=== PATIENT | male | born 1970 | race Caucasian/White ===

== ENCOUNTER 2025-02-06 19:53 | Emergency (ER) | payer SELFPAY ==
[2025-02-06 19:53] VITALS: BMI 33.4
[2025-02-06 20:02] VITALS: BP 108/73
[2025-02-06 20:25] LABS: Hematocrit 40.6 % (39.0-52.0); Hemoglobin 14.7 g/dL (13.0-18.0); Mean Corp Hgb Conc. 36.2 g/dL (33.0-37.0); Mean Corpuscular Volume 86.9 fL (80.0-94.0); Nucleated Red Blood Cells % 0 % (-); Platelet Count 199 10^3/uL (130-400); Red Cell Dist. Width 11.4 % (11.5-14.5)
[2025-02-06 20:42] LABS: ALT (SGPT) 29 U/L (0-50); AST (SGOT) 26 U/L (17-59); Albumin 4.9 g/dl (3.5-5.0); Alkaline Phosphatase 73 U/L (38-126); Blood Urea Nitrogen 23 mg/dl (9-20); Calcium 9.8 mg/dl (8.4-10.2); Carbon Dioxide 25 mmol/L (22-30); Chloride 102 mmol/L (98-107); Glucose 101 mg/dl (70-99); Potassium 4.1 mmol/L (3.5-5.1); Sodium 136 mmol/L (135-145); Total Protein 7.5 g/dl (6.3-8.2); eGFR > 60.00
[2025-02-06 20:48] LABS: Troponin I < 0.012 ng/ml
[2025-02-06 22:42] VITALS: BP 146/69
[2025-02-06 23:03] VITALS: BP 107/76
[2025-02-07] VITALS: BP 117/70
[2025-02-07 00:02] LABS: Troponin I < 0.012 ng/ml
--- NOTE | 2025-02-07 00:13 | ED.GENMED ---
History of Present Illness
General
Chief Complaint: Chest Pain
Time Seen by Provider: 02/06/25 23:22
History of Present Illness
History of Present Illness:
54-year-old male presents to the emergency department for evaluation of intermittent left-sided chest and left arm discomfort occurring throughout the day today. Symptoms seem to be worse when at rest and improved when moving. He has a prior
history of NH with 5 total drug-eluting stents, occurred approximately 4 years ago in his home state of [place]. States that the symptoms are not comparable whatsoever. No associated fevers or chills. No shortness of breath or leg swelling.
Review of Systems
Review of Systems
Allergies reviewed?: Yes
All Other Systems: ROS reviewed and negative except as documented in HPI and ROS
Phy Exam
Physical Exam
Physical Exam:
GEN: Well appearing, NAD, WDWN
HEENT: Oral mucosa moist, no scleral icterus
Cardiac: Regular rate and rhythm, no murmur
Lung: No respiratory distress, no tachypnea, lungs clear to auscultation bilaterally
MSK: No gross deformity or injuries
Skin: Good color, no pallor or jaundice, no rashes
Neuro: AO x3, moves all extremities freely
Psych: Calm, cooperative
Scores
Heart Score for Chest Pain Patients
STEMI patient?: No
History: Slightly or Non-Suspicious
ECG: Normal
Age: >45 - <65 years
Risk Factors: >/= 3 Risk Factors or History of CAD
Troponin: </= Normal Limit
Heart Score for Chest Pain Patients: 3
Heart Score Risk: 2.5% MACE over next 6 weeks
Course
Orders/Labs/Results
Orders:
Orders
02/06/25 19:54
ECG [Electrocardiogram (*1)] Urgent
Reason for Study: Chest Pain
EKG- Treatment ONCE
02/06/25 20:17
Complete Blood Count/With Diff Urgent
Comprehensive Metabolic Panel Urgent
Troponin I Urgent
02/06/25 23:32
Troponin I Urgent
02/07/25 00:13
CR Chest - 2 Views Stat
Comment:
Reason For Exam: chest pain
Abnormal Lab Results
02/06/25
20:17
RBC 4.67 L 10^6/uL
(4.70-6.10)
MCH 31.5 H pg
(27.0-31.0)
RDW 11.4 L %
(11.5-14.5)
Absolute Monos (auto) 0.7 H 10^3/uL
(0.1-0.6)
BUN 23 H mg/dl
(9-20)
Glucose 101 H mg/dl
(70-99)
02/06/25 20:17
02/06/25 20:17
Vital Signs
Initial and Last Documented VS:
Initial Vital Signs
Temp Pulse Resp BP Pulse Ox
99.1 F 71 20 108/73 98
02/06/25 20:02 02/06/25 20:02 02/06/25 20:02 02/06/25 20:02 02/06/25 20:02
Last Documented Vital Signs
Temp Pulse Resp BP Pulse Ox
99.1 F 60 18 117/70 97
02/06/25 20:02 02/07/25 00:00 02/07/25 00:00 02/07/25 00:00 02/07/25 00:13
MDM/Problems Addressed
MDM/Problems Addressed:
Patient's initial EKG is reassuring and initial troponin/delta troponin are negative. His symptoms do not sound concerning for ACS given lack of exertional component and lack of similarity to prior angina. Chest x-ray reassuring as well.
Encouraged him to follow-up with his primary cone tender and when he returns home to [place]
Comment
Comment:
EKG independently interpreted by me shows normal sinus rhythm at a rate of [address] changes concerning for ischemia
*Pulse Oximetry
SaO2: 97
Oxygen Mode of Delivery: Room air
Patient hypoxic: no
*Critical Care Note
Total Time (30-74mins, 75-104mins- exclusive of procedures): Not Applicable
ED Attending Note
-
Portions of this chart may have been created with voice recognition software.� Occasional wrong word or��sound alike� substitutions may have occurred due to the inherent limitations of voice recognition software.
Discharge Plan
Departure
Patient Disposition: Home (Routine Discharge)
Date of Disposition: 02/07/25
Time of Disposition: 00:42
Patient with high blood pressure during this ER visit?: No
Discharge Problem:
Atypical chest pain
Instructions: Chest Pain NON-DHP [facility] [place] Follow Up
Activity Restrictions/Additional Instructions:
See your cone tender when you return to [place]
Interventions
Interventions:
*Risk Screen - Suicide Last Done: 02/06/25 20:02
*General Assessment Last Done: 02/06/25 20:02
*Neglect/Abuse Screening Last Done: 02/06/25 20:02
*ED- Fall Risk Assessment Last Done: 02/06/25 20:02
*ED COVID-19 Vaccine History Last Done: 02/06/25 20:02
ED- Cardiac Assessment Last Done: 02/07/25 00:03
Discharge Date and Time
Print Language: ITALIAN
== END 2025-02-07 00:52 | disposition home or self-care (01) ==
LOC: EMR 19:53
PROVIDERS: Emergency Medicine; Physician Assistant; EMERGENCY PHYSICIAN Student in an Organized Health Care Education/Training Program
DX: R07.89 Other chest pain (principal); M79.602 Pain in left arm; I25.2 Old myocardial infarction; Z95.5 Presence of coronary angioplasty implant and graft; Z79.82 Long term (current) use of aspirin; Z88.8 Allergy status to other drugs, medicaments and biological substances
CPT/HCPCS: 99284; 71046; 80053; 84484; 85025; 93005

== ENCOUNTER 2025-02-07 21:25 | Emergency (ER) | payer BC, SELFPAY ==
[2025-02-07 21:31] VITALS: BP 122/87
[2025-02-07 22:03] LABS: Hematocrit 40.1 % (39.0-52.0); Hemoglobin 14.8 g/dL (13.0-18.0); Mean Corp Hgb Conc. 36.9 g/dL (33.0-37.0); Mean Corpuscular Volume 86.1 fL (80.0-94.0); Nucleated Red Blood Cells % 0 % (-); Platelet Count 198 10^3/uL (130-400); Red Cell Dist. Width 11.7 % (11.5-14.5)
[2025-02-07 22:15] LABS: ALT (SGPT) 31 U/L (0-50); AST (SGOT) 28 U/L (17-59); Albumin 4.9 g/dl (3.5-5.0); Alkaline Phosphatase 76 U/L (38-126); Blood Urea Nitrogen 20 mg/dl (9-20); Calcium 9.7 mg/dl (8.4-10.2); Carbon Dioxide 27 mmol/L (22-30); Chloride 100 mmol/L (98-107); Glucose 124 mg/dl (70-99); Potassium 3.9 mmol/L (3.5-5.1); Sodium 134 mmol/L (135-145); Total Protein 7.9 g/dl (6.3-8.2); eGFR > 60.00
[2025-02-07 22:18] LABS: D-Dimer 2.59 ug/mlFEU (0.00-0.50)
[2025-02-07 22:27] LABS: Troponin I < 0.012 ng/ml
--- NOTE | 2025-02-08 00:18 | ED.GENMED ---
History of Present Illness
<Yanci Garland PA-C - Last Filed: 02/08/25 06:13>
General
Chief Complaint: Chest Pain
Source: patient
Exam Limitations: none
Time Seen by Provider: 02/07/25 23:26
Nursing documentation reviewed up to this point in time: agreed with
History of Present Illness
History of Present Illness:
see mdm
Review of Systems
<Yanci Garland PA-C - Last Filed: 02/08/25 06:13>
Review of Systems
Allergies reviewed?: Yes
All Other Systems: Not applicable
Phy Exam
<PHILLIP Luis Last Filed: 02/08/25 06:13>
Physical Exam
Physical Exam:
GENERAL: Alert , in no apparent distress, looks well
EYE: pupils equal and reactive
NECK: Supple
ENT: o/p clr, mmm.
CARDIAC: Regular rate and rhythm .no edema
LUNGS: Clear breath sounds bilaterally, no acute respiratory distress, no wheezes/rales/rhonchi
ABDOMEN: Soft, without focal tenderness, no r/g, no cvat, normal bowel sounds
NEUROLOGICAL: Alert and oriented, no focal neuro deficits, cn intact
SKIN: Warm and dry, skin intact.
MUSCULOSKELETAL: No edema, well perfused. neg thi's sign
PSYCH: Normal and appropriate interaction.
Scores
<Yanci Garland PA-C - Last Filed: 02/08/25 06:13>
Heart Score for Chest Pain Patients
STEMI patient?: No
History: Slightly or Non-Suspicious
ECG: Normal
Age: >/= 65 years
Risk Factors: >/= 3 Risk Factors or History of CAD
Troponin: </= Normal Limit
Heart Score for Chest Pain Patients: 4
Heart Score Risk: 20.3% MACE over next 6 weeks
Course
<Yanci Garland PA-C - Last Filed: 02/08/25 06:13>
Orders/Labs/Results
Orders:
Orders
02/07/25 21:26
Electrocardiogram (*1) Urgent
Reason for Study: Chest Pain
EKG- Treatment ONCE
02/07/25 21:35
D-Dimer Urgent
02/07/25 21:36
Complete Blood Count/With Diff Urgent
Comprehensive Metabolic Panel Urgent
Troponin I Urgent
02/08/25 00:06
Electrocardiogram (*1) Urgent
Reason for Study: Chest Pain
CT Chest PE Study Urgent
Comment:
Reason For Exam: chest pain, elev d dimer
EKG- Treatment ONCE
02/08/25 00:24
Troponin I Urgent
Abnormal Lab Results
02/07/25 02/07/25
21:35 21:36
RBC 4.66 L 10^6/uL
(4.70-6.10)
MCH 31.8 H pg
(27.0-31.0)
Absolute Monos (auto) 0.7 H 10^3/uL
(0.1-0.6)
D-Dimer 2.59 H ug/mlFEU
(0.00-0.50)
Sodium 134 L mmol/L
(135-145)
Glucose 124 H mg/dl
(70-99)
02/07/25 21:36
02/07/25 21:36
Vital Signs
Initial and Last Documented VS:
Initial Vital Signs
Temp Pulse Resp BP Pulse Ox
36.9 C 82 18 122/87 95
02/07/25 21:31 02/07/25 21:31 02/07/25 21:31 02/07/25 21:31 02/07/25 21:31
Last Documented Vital Signs
Temp Pulse Resp BP Pulse Ox
36.9 C 58 14 120/73 96
02/07/25 21:31 02/08/25 01:30 02/08/25 01:30 02/08/25 00:58 02/08/25 01:30
<Sameer Hardeep Stewart, DO - Last Filed: 02/08/25 02:10>
Orders/Labs/Results
Orders:
Orders
02/07/25 21:26
Electrocardiogram (*1) Urgent
Reason for Study: Chest Pain
EKG- Treatment ONCE
02/07/25 21:35
D-Dimer Urgent
02/07/25 21:36
Complete Blood Count/With Diff Urgent
Comprehensive Metabolic Panel Urgent
Troponin I Urgent
02/08/25 00:06
Electrocardiogram (*1) Urgent
Reason for Study: Chest Pain
CT Chest PE Study Urgent
Comment:
Reason For Exam: chest pain, elev d dimer
EKG- Treatment ONCE
02/08/25 00:24
Troponin I Urgent
Abnormal Lab Results
02/07/25 02/07/25
21:35 21:36
RBC 4.66 L 10^6/uL
(4.70-6.10)
MCH 31.8 H pg
(27.0-31.0)
Absolute Monos (auto) 0.7 H 10^3/uL
(0.1-0.6)
D-Dimer 2.59 H ug/mlFEU
(0.00-0.50)
Sodium 134 L mmol/L
(135-145)
Glucose 124 H mg/dl
(70-99)
02/07/25 21:36
02/07/25 21:36
Vital Signs
Initial and Last Documented VS:
Initial Vital Signs
Temp Pulse Resp BP Pulse Ox
36.9 C 82 18 122/87 95
02/07/25 21:31 02/07/25 21:31 02/07/25 21:31 02/07/25 21:31 02/07/25 21:31
Last Documented Vital Signs
Temp Pulse Resp BP Pulse Ox
36.9 C 58 14 120/73 96
02/07/25 21:31 02/08/25 01:30 02/08/25 01:30 02/08/25 00:58 02/08/25 01:30
<Yanci Garland PA-C - Last Filed: 02/08/25 06:13>
MDM/Problems Addressed
Differential Diagnosis Includes:
mdm
MDM/Problems Addressed:
Note:
CHIEF COMPLAINT(S)
Chest pain with a burning sensation.
HISTORY OF PRESENT ILLNESS
The patient is a 54-year-old male with a history of cardiac stents who presents with chest pain. He reports that the current episode began around 8:30 PM tonight with a burning sensation localized to the anterior left chest. He describes the pain as
more of a burning sensation rather than an ache, contrasting with the previous days symptoms which were deeper, aching pains. The chest pain is currently rated as a 1 on a pain scale of 0 to 10, indicating mild intensity, and it is present
constantly. There is no reported exacerbation of pain with breathing or palpation.
Yesterday, the patient experienced episodic pain described as waxing and waning, located across the upper back. He reports no shortness of breath or pleuritic features. he cam here and had 2 neg trop an dwas discharged.
tonight's pain feels different.
The patient traveled from [place] and has been in the area for approximately two weeks. He denies any recent long-distance travel or recent surgeries.
The patients cardiac history includes the placement of five stents in 2020. 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
He denies any symptoms of cough, upper respiratory infection, or increase in chest pain with exertion. The discomfort is somewhat relieved by distraction.
CHRONIC MEDICAL CONDITIONS SIGNIFICANTLY AFFECTING CARE
History of coronary artery disease with stent placement in 2020.
REVIEW OF SYSTEMS
- Cardiovascular: Chest pain described as burning in the left anterior chest, mild pain across the shoulder and upper back, no shortness of breath, no worsening of pain with exertion., feels better with movement;
- Respiratory: No cough, no pleuritic chest pain.
- Gastrointestinal: No significant complaints mentioned.
PHYSICAL EXAM
- Cardiovascular: Normal heart sounds, no murmurs or gallops as per conversation.
Nursing notes reviewed and vital signs reviewed.
GENERAL: Alert , in no apparent distress
EYE: pupils equal and reactive
NECK: Supple
ENT: o/p clr, mmm.
CARDIAC: Regular rate and rhythm .
No reproducible chest wall tenderness, no rashes
LUNGS: Clear breath sounds bilaterally, no acute respiratory distress, no wheezes/rales/rhonchi
ABDOMEN: Soft, without focal tenderness, no r/g, no cvat, normal bowel sounds
NEUROLOGICAL: Alert and oriented, no focal neuro deficits
SKIN: Warm and dry, skin intact.
MUSCULOSKELETAL: No edema, well perfused. neg thi's sign
PSYCH: Normal and appropriate interaction.
PROBLEM LIST
- Acute: Chest pain with elevated D-Dimer.
- History of coronary artery disease with prior stent placement.
PLAN
- Order CT scan to evaluate the chest for possible pulmonary embolism due to elevated D-Dimer.
- Continue current medications including baby aspirin.
- Monitor cardiac enzymes to rule out acute coronary syndrome.
DIFFERENTIAL DIAGNOSIS
The Differential Diagnosis includes, in no particular order and is not limited to:
1. Coronary artery disease
2. Pulmonary embolism
3. Gastroesophageal reflux disease
4. Musculoskeletal chest pain
5. Aortic dissection
6. Costochondritis
7. Pericarditis
8. Pneumonia
9. Anxiety-related chest pain
10. Myocardial infarction
02/08/2025 0205 AM
54-year-old male with significant cardiac history with multiple stents presents for the second day in a row for chest discomfort which is a burning sensation that comes in waves in the left side of his chest, he also had a pain in the upper back.
Yesterday's pain sounds like it was a little bit different. Maximally this is a very minimal discomfort and does not feel like his previous heart attack. He does report that his troponins never bumped when he had the stents placed. The patient
has had recent long travel and thus on a recurrent visit for chest discomfort we did a D-dimer which was positive. His CTA was negative for dissection and PE. He had 2 negative troponins, 2 reassuring sinus bradycardia EKGs, first-degree AV block,
Q-wave in lead III which is unchanged
He was seen by ED attending
who agreed with the plan
ok to d/c home
consider this could be early shingles
<Yanci Garland PA-C - Last Filed: 02/08/25 06:13>
*Pulse Oximetry
SaO2: 96
Oxygen Mode of Delivery: Room air
Patient hypoxic: no (95)
*Critical Care Note
Total Time (30-74mins, 75-104mins- exclusive of procedures): Not Applicable
ED Attending Note
<Yanci Garland PA-C - Last Filed: 02/08/25 06:13>
-
Portions of this chart may have been created with voice recognition software.� Occasional wrong word or��sound alike� substitutions may have occurred due to the inherent limitations of voice recognition software.
<Sameer Stewart DO - Last Filed: 02/08/25 02:10>
ED Attending Note
Patient seen and examined by attending physician: Yes
I performed the substantive portion of visit, reviewed & personally made and approve the management plan that is documented in note by myself or ANDRÉS.: Yes
ED Attending Note:
I evaluated the patient at bedside. EKG is unremarkable. CT shows no evidence of dissection or PE. I personally reviewed the images. Troponin x 2 less than 0.012. Of note the patient also had 2 troponins obtained within the last 48 hours which
were also normal. The patient never had any diaphoresis. He had no exertional symptoms. He does have some ongoing left-sided discomfort but appears very comfortable. His workup is unremarkable. He will follow-up with his stamp maker in [facility]
[place] and he was encouraged to return here if any worsening symptoms.
Discharge Plan
Departure
Patient Disposition: Home (Routine Discharge)
Date of Disposition: 02/08/25
Time of Disposition: 02:10
Patient with high blood pressure during this ER visit?: No
Condition: Fair
Covid-19: Not Applicable
Discharge Problem:
Chest pain
Instructions: Chest Pain NON-DHP Dietitian Teaching Follow Up
Prescriptions:
No Action
losartan 50 mg Tablet
50 mg PO DAILY
bupropion HCl 150 mg Tablet Sustained-Release 12 Hr
450 mg PO DAILY
aspirin 81 mg Tablet,Delayed Release (Dr/Ec)
81 mg PO DAILY
trazodone 100 mg Tablet
50 mg PO HSPRN PRN (Reason: sleep)
rosuvastatin 40 mg Tablet
40 mg PO HS
metoprolol tartrate 25 mg Tablet
25 mg PO BID
cholecalciferol (vitamin D3) 25 mcg (1,000 unit) Tablet
25 mcg PO BID
omega 2-pug-ujt-fish oil [Fish Oil] 1,000 (120-180) mg Capsule
1 cap PO BID
creatine monohydrate 5,000 mg Powder In Packet
5,000 mg PO DAILY
Calm Magnesium Powder
1 tsp PO HS
vitamin K
1 tab PO HS
Referrals:
PRIVATE,PHYSICIAN [Family Provider, Internal Medicine]
Activity Restrictions/Additional Instructions:
YOU HAD A NEGATIVE CT OF YOUR CHEST AND 2 NEGATIVE TROPONINS
WE ARE UNSURE WHAT IS CAUSING YOUR PAIN
WATCH FOR A RASH IN CASE OF SHINGLES
CALL YOUR INDUSTRIAL SERVICER TO FOLLOW UP
RETURN FOR WORSENING SYMPTOMS
Interventions
Interventions:
*Risk Screen - Suicide Last Done: 02/07/25 21:37
*General Assessment Last Done: 02/07/25 23:09
*Neglect/Abuse Screening Last Done: 02/07/25 21:37
*ED- Fall Risk Assessment Last Done: 02/07/25 23:08
*ED COVID-19 Vaccine History Last Done: 02/07/25 23:08
*Nursing Disposition Last Done: 02/08/25 02:41
ED- Cardiac Assessment Last Done: 02/07/25 23:08
Discharge Date and Time
Discharge Date/Time: 02/08/25 02:42
Print Language: EMIRATI
[2025-02-08 00:58] VITALS: BP 120/73
[2025-02-08 01:03] LABS: Troponin I < 0.012 ng/ml
== END 2025-02-08 02:42 | disposition home or self-care (01) ==
LOC: EMR 21:25
PROVIDERS: Emergency Medicine; Physician Assistant; EMERGENCY PHYSICIAN Emergency Medicine
DX: R07.89 Other chest pain (principal); I25.10 Atherosclerotic heart disease of native coronary artery without angina pectoris; Z95.5 Presence of coronary angioplasty implant and graft
CPT/HCPCS: 99284; 71275; 80053; 84484; 85025; 85379; 93005; Q9967